=== PATIENT | male | born 1940 | race Caucasian/White ===

== ENCOUNTER 2022-11-18 10:33 | Day surgery (SDC) | payer MEDICARE, OTHER ==
[~2022-11-18] VITALS: Ht 180.3 cm; Wt 109.7 kg
[2022-11-18] VITALS (7 sets, daily range): BP systolic 91–123; BP diastolic 66–82; PULSE 67–113; TEMP 98
[2022-11-18] MEDS ORDERED: TOPROL XL 25MG25 MG PO (11:29)
[2022-11-18] MEDS ORDERED: XARELTO20 MG PO (11:30)
[2022-11-18] MEDS ORDERED: PROAIR HFA0.09 MG/AC IH (11:30)
[2022-11-18] MEDS ORDERED: RT ALBUTER2.5 MG/0.5 IH (11:31)
[2022-11-18] MEDS ORDERED: FLONASEALLERGY NS (11:33)
[2022-11-18] MEDS ORDERED: ROBITUSSIN100 MG/5 M PO (11:33)
[2022-11-18] MEDS ORDERED: TYLENOL 325MG325 MG PO (11:34)
[2022-11-18] MEDS ORDERED: ATROVENT INHALE14 GM IH (11:35)
[2022-11-18] MEDS ORDERED: CLARITIN 1010 MG/TAB PO (11:37)
[2022-11-18 11:38] LABS: BASO % 0.3 % (0.0-2.0); EOS # 0.2 K/mm3 (0.0-0.7); EOS % 2.9 % (0.0-4.0); GRAN # 3.8 K/mm3 (1.4-6.5); GRAN % 64.6 % (42.2-75.2); HEMATOCRIT 42.3 % (42.0-52.0); HEMOGLOBIN 14.6 g/dl (13.5-18.0); LYMPH # 1.3 K/mm3 (1.2-3.4); LYMPH % 22.4 % (20.0-51.0); MEAN CELL VOLUME 85 fl (80.0-100.0); MEAN CORPUSCULAR HEMOGLOBIN 29 pg (27-31); MEAN CORPUSCULAR HGB CONC 35 g/dl (33.0-37.0); MEAN PLATELET VOLUME 9.8 fl (7.4-10.4); MONO # 0.5 K/mm3 (0.1-0.6); MONO % 9.3 % (1.7-9.3); PLATELET COUNT 218 K/mm3 (130-400); RED BLOOD COUNT 4.97 M/mm3 (4.20-5.60); REDCELL DISTRIBUTION WIDTH-CV 13.1 % (11.5-14.5)
[2022-11-18] MEDS ORDERED: HYZAAR 12.5 MG-1 TAB PO (11:40)
[2022-11-18] MEDS ORDERED: VITAMIN FLUSH-F1 CAP PO (11:40)
[2022-11-18] MEDS ORDERED: PRILOSEC10 MG PO (11:41)
[2022-11-18] MEDS ORDERED: SEREVENT IH (11:41)
[2022-11-18] MEDS ORDERED: OCEAN NASAL SPR45 ML NS (11:42)
[2022-11-18 11:53] LABS: CALCIUM 9.3 mg/dL (8.4-10.2); CREATININE, serum 0.82 mg/dL (0.72-1.25); MAGNESIUM 1.8 mg/dL (1.6-2.6); POTASSIUM 3.9 mmol/L (3.5-4.5)
[2022-11-18 12:06] LABS: INR 1.6 (0.8-3.0); PROTHROMBIN TIME 18.5 SECONDS (9.7-12.8)
[2022-11-18 12:15] LABS: THYROID STIMULATING HORMONE 1.491 uIU/mL (0.350-4.940)
[2022-11-18] MEDS ORDERED: PACERONE200 MG PO (13:53)
--- NOTE | 2022-11-18 14:12 | NUR ---
DC instructions reviewed with pt, he expresses understanding. He has tolerated fluids by mouth without issue following cardioversion. He has denied desire for food. He is able to sit up on edge of bed, and then move about room to dress while dressing with no dizziness or concerns. He is stable on feet. He is assisted out by wheelchair to friend's truck.
== END 2022-11-18 14:12 | disposition home or self-care (01) ==
LOC: COL.CAR 10:33
PROVIDERS: Internal Medicine Cardiovascular Disease
DX: I48.91 Unspecified atrial fibrillation (principal); I48.0 Paroxysmal atrial fibrillation; I10 Essential (primary) hypertension; K21.9 Gastro-esophageal reflux disease without esophagitis; F17.200 Nicotine dependence, unspecified, uncomplicated; Z79.899 Other long term (current) drug therapy; Z85.820 Personal history of malignant melanoma of skin; Z85.840 Personal history of malignant neoplasm of eye
CPT/HCPCS: J7120